=== PATIENT | female | born 1990 | race Caucasian/White ===

== ENCOUNTER 2024-03-24 11:20 | Outpatient (CLI) | payer OTHER, SELFPAY | END 2024-03-24 11:21 | disposition home or self-care (01) | PROVIDERS: PCP Advanced Practice Midwife; Visit Provider Advanced Practice Midwife | DX: Z34.91 Encounter for supervision of normal pregnancy, unspecified, first trimester (principal); Z3A.08 8 weeks gestation of pregnancy | CPT/HCPCS: 76817; 86592; 86703; 86704; 86706; 86762; 86787; 86803; 86850; 86900; 86901; 87086; 87340 ==

== ENCOUNTER 2024-04-10 15:40 | Outpatient (CLI) | payer OTHER, SELFPAY | END 2024-04-10 15:41 | disposition home or self-care (01) | LOC: NFLDREF 04-14 11:34 | PROVIDERS: PCP Advanced Practice Midwife; Referring Provider Advanced Practice Midwife; Visit Provider Advanced Practice Midwife | DX: Z34.81 Encounter for supervision of other normal pregnancy, first trimester (principal); F12.91 Cannabis use, unspecified, in remission | CPT/HCPCS: 80306 ==

== ENCOUNTER 2024-08-07 08:07 | Outpatient (CLI) | payer OTHER, SELFPAY | END 2024-08-07 08:08 | disposition home or self-care (01) | LOC: NFLDREF 08-09 04:02 | PROVIDERS: Visit Provider Advanced Practice Midwife | DX: Z34.93 Encounter for supervision of normal pregnancy, unspecified, third trimester (principal); Z3A.28 28 weeks gestation of pregnancy | CPT/HCPCS: 86592 ==

== ENCOUNTER 2024-08-07 08:09 | Outpatient (CLI) | payer OTHER, SELFPAY | END 2024-08-07 08:10 | disposition home or self-care (01) | LOC: US 08:10 | PROVIDERS: Visit Provider Advanced Practice Midwife | DX: O09.293 Supervision of pregnancy with other poor reproductive or obstetric history, third trimester (principal); O36.63X0 Maternal care for excessive fetal growth, third trimester, not applicable or unspecified; Z3A.31 31 weeks gestation of pregnancy | CPT/HCPCS: 76816 ==

== ENCOUNTER 2024-09-17 13:50 | Outpatient (CLI) | payer OTHER, SELFPAY ==
[2024-09-17 14:00] VITALS: RESP 16; TEMP 36.8
[2024-09-17 14:08] VITALS: PULSE 88; O2SAT 96
[2024-09-17 14:09] VITALS: BP 127/73; PULSE 88
[2024-09-17 15:04] LABS: Appearance Urine Clear (Clear); Bilirubin Urine Negative (Negative); Blood Urine Trace-intact (Negative); Color Urine Yellow (Yellow); Glucose Urine Negative (Negative); Ketones Urine Trace (Negative); Leukocyte Esterase Urine Negative (Negative); Nitrite Urine Negative (Negative); Protein Urine Negative (Negative); Specific Gravity Urine 1.015 (1.000-1.030); Urobilinogen Urine 0.2 (0.2-1.0)
[2024-09-17] MEDS: LACTATED RINGERS 1000 ML 1,000 ML 500 ML IV (15:18)
[2024-09-17 15:21] LABS: Amorphous Sediment Urine Moderate; Bacteria Urine Few; RBC Urine 0-2 (0-2); Squamous Epithelial Cell Urine Few (None-Few); WBC Urine 0-2 (0-5)
--- NOTE | 2024-09-17 15:45 | CRLHL7_ITS ---
For Patients: As a result of the Century Cures Act, medical imaging exams and procedure reports are released immediately into your electronic medical record. You may view this report before your referring provider. If you have questions, please contact your health care provider. INDICATION: Unsure of baseline heart rate. TECHNIQUE: Ultrasound OB pelvis transabdominal. Real-time cardoso-scale imaging of the fetus was performed without stress testing. COMPARISON: 08/07/2024. FINDINGS: Sonographic imaging demonstrates a single living intrauterine gestation. Fetus demonstrates a regular cardiac rate of 133 beats per minute. Fetus has a cephalic orientation. Posterior placenta location. Amniotic fluid volume single deepest pocket 8.2 cm 2/2. motion 2/2. tone 2/2. breathing movements 0/2. IMPRESSION: Single intrauterine with a heart rate of 133 beats per minute and biophysical profile 11/09. No breathing visualized. Dictated by Andi Noel MD @ 09/17/2024 6:05:10 PM (Electronically Signed)
[2024-09-17 18:31] VITALS: BP 114/72; PULSE 76; RESP 16; TEMP 36.8
--- NOTE | 2024-09-17 18:48 | PM.OBLDTN ---
OB - Triage/Final Diagnosis Visit Information Date Seen: 09/17/24 Date of evaluation: 09/17/24 Narrative: Hiwot is a 34 year old 2 para 1 at 34.0 weeks gestation by LMP, who presents with increased pelvic pressure and contractions. She reports feeling more uncomfortable starting yesterday with pelvic pressure which reminded her of her last labor pains. This worsened around noon today and she reported she felt like she did when in labor with her last . She denies leaking of fluid or bleeding. On admission to triage she was akhil frequently. Cervical exam was fingertip and posterior. She was given 1000ml IV fluids total during her stay. FHR indeterminate due to wandering baseline, fetus was very active could be heard moving with the US, pt reported frequent movement as well. Decision was made to get BPP, which was 6/8, one off for breathing. GREGG 22 per tech. EFM placed after exam and then was Category I with FHR 130, + accelerations, no decelerations. Contractions continued on monitor but patient not aware of them. Does report some pelvic pressure when up walking to the bathroom. UA had trace blood and moderate sediment, pt denies UTI symptoms. Decision to wait for urine culture before considering treatment. Repeat exam approximately 4 hours after initial check was unchanged. Assessment Dehydration vs kidney stone/sediment vs UTI Threatened labor Plan Discharge home with PTL precautions Return for increasing pelvic pressure or contractions Report any UTI symptoms if occurs Reviewed s/s kidney stone, return for severe pain Oral hydration at home Routine visit as scheduled Reason for evaluation: threatened labor Evaluation Cervical dilation (cm): 0 Cervical effacement (%): 0 Laboratory results: Laboratory Tests 09/17/24 Range/Units 14:35 Urine Color Yellow (Yellow) Urine Appearance Clear (Clear) Urine pH 7.0 (5.0-8.5) Ur Specific [place] 1.015 (1.000-1.030) Urine Protein Negative (Negative) Urine Glucose (UA) Negative (Negative) Urine Ketones Trace A (Negative) Urine Blood Trace-intact A (Negative) Urine Nitrite Negative (Negative) Urine Bilirubin Negative (Negative) Urine Urobilinogen 0.2 (0.2-1.0) Ur Leukocyte Esterase Negative (Negative) Urine RBC 0-2 (0-2) Urine WBC 0-2 (0-5) Ur Squamous Epith Cells Few (None-Few) Amorphous Sediment Moderate A (None) Urine Bacteria Few A (None) Vital signs: Vital Signs - 24 hr 09/17/24 14:00 09/17/24 14:08 09/17/24 14:09 Temperature 98.3 F Pulse Rate 88 Respiratory Rate 16 Blood Pressure 127/73 Pulse Oximetry 96 09/17/24 18:31 Temperature Pulse Rate 76 Respiratory Rate Blood Pressure 114/72 Pulse Oximetry Final Diagnosis (1) Threatened labor: Status: Acute
--- NOTE | 2024-09-17 18:58 | PC.OBNST ---
NST Note NST Note Start: 09/17/24 14:25 Freq: ONCE Status: Active Protocol: Document 09/17/24 18:56 BRM (Rec: 09/17/24 18:58 BRM Desktop) NST Note 2 Para (# of births) 1 EDC 10/29/24 Gestational Age In Weeks & Days 34 Weeks & 0 Days Patient Presented with Complaint(s) of Contractions/cramping Reactive Yes Appropriate for Gestational Age Yes RN Marni Hernandez Date 09/17/24 Reactive Yes Appropriate for Gestational Age Yes KARUNA Campbell CNM Date 09/17/24 OB NST charge Yes Complete NST Note via Write Note Yes The provider's electronic signature indicates the NST is reactive/appropriate for gestational age. *Note to provider: If an addendum is required, open the patient's chart and click on the note under the Nurse/Allied Health tab.
== END 2024-09-17 18:44 | disposition home or self-care (01) ==
LOC: OB OUT 13:51 → OB 13:53
PROVIDERS: Visit Provider Advanced Practice Midwife
DX: O47.03 False labor before 37 completed weeks of gestation, third trimester (principal); Z3A.34 34 weeks gestation of pregnancy
CPT/HCPCS: 59025; 76815; 76819; 81001; 81003; 87086; G0463; J7120

== ENCOUNTER 2024-10-01 08:37 | Outpatient (CLI) | payer OTHER, SELFPAY | END 2024-10-01 08:38 | disposition home or self-care (01) | LOC: NFLDREF 10-03 23:37 | PROVIDERS: Visit Provider Advanced Practice Midwife | DX: Z34.83 Encounter for supervision of other normal pregnancy, third trimester (principal) | CPT/HCPCS: 87081; 87653 ==

== ENCOUNTER 2024-10-18 22:26 | Inpatient (IN) | payer OTHER, SELFPAY ==
--- NOTE | 2024-10-18 22:45 | W.PM.LDBA ---
Subjective History of Present Illness Date Seen: 10/18/24 Narrative: Patient is being admitted to Labor and Delivery for SROM is grossly ruptured on admission. She is a 34 year old at 38.3 weeks gestation. Her full history and physical was dictated by TRELL Diallo on 10/08/24. Please see this for details. Specific Issues/Plans Partner: Dale? NIPT low risk, girl H&P:? Yung Campbell CNM on 10/08/24? # Family hx of BP issues in (mother and grandmother) recommended baby ASA at 12 weeks, is taking Risks: has BMI>30 and age >35? #? AMA 35-39 genetic screening- planning NIPT recommend level II 20 wk US?-order placed for [place] #? Possible sleep apnea having home sleep study soon did not qualify for CPAP had 2 events and hour per pt report ?#THC use last 6 months ago UDS ordered negative at 11wks #Large for dates fetus, EFW >99%ile Hx of Macrosomia with 1st baby 9lb 13oz [facility] recommended growth at 28 weeks: >97% Imaging:? 1st tri: 03/27/24-Single living intrauterine with sonographic gestational age 9 weeks 1 day and sonographic due date 10/26/2024. Inferior subchorionic hemorrhage measures 1.9 x 1.3 x 0.9 cm. Anatomy US: Level II with [facility]. SIUP. No anomalies identified. Growth and estimated weight is large for gestational age pattern of growth, EFW 99%ile. Amniotic fluid appears normal. Recommend repeat growth due to EFW >90%ile to be completed in [place]. Repeat growth US completed 08/07/24: IMPRESSION: 1. Sonographic gestational age 31 weeks 2 days and sonographic due date 10/07/2024. Sonographic age is 22 days ahead of the clinical age. 2. Estimated weight greater than 97th percentile. BPD, HC and AC all greater than 97th percentile. Repeat US not recommended. Vaccinations:?? COVID:?vaccinated, 4 boosters, 03/24/24 Flu: 03/24/24? Tdap: 08/28/23? RSV: No longer being offered? 32 week mental health: 08/27/24? Last pap:? [Only high-risk abnormal pap results in problem list]? GBS: 10/01/24 OB - Problem Based A/P Additional Plan (1) SROM (spontaneous rupture of membranes): Status: Acute (2) with 38 completed weeks gestation: Status: Acute (3) AMA (advanced maternal age) multigravida 35+: Status: Acute (4) Hx of macrosomia in infant in prior , currently : Status: Acute Plan Assessment:?? at 38.3 weeks gestation?? GBS negative? Patient is coping well with challenges of labor.?? Labor type: Spontaneous, Early labor? Category 1 FHR pattern.? complicated by: Large for dates fetus, EFW >99%ile AMA 35-39 Plan:?? ?Admit to L & D? IV access: not indicated at this time Monitoring per policy: intermittent? Candidate for analgesia of choice.? Planning unmedicated for pain management Expectant management at this time ? Patient encouraged to reposition and ambulate to promote physiologic labor and . Anticipate ? Delivery/Labor/Induction Plan Plan: expectant management OB Exam Physical Exam Vital signs: VSS, afebrile? General Appearance:? Calm, cooperative.? No acute distress.? Normal affect.? Psychiatric Exam: Alert and oriented, appropriate affect? HEENT: normocephalic, neck supple, full ROM? Respiratory:? Symmetrical chest wall movement.? Normal respiratory effort.? Clear to auscultation? Cardiac:? regular rate and rhythm? Abdomen: Gravid, non tender? Extremities:? normal and trace edema? Skin: warm, dry.??? Ctx:? Q 5 min apart.? ? Moderate? ? FHTs:? Baseline: 150.? Variability: moderate.?? Accels: +.??? Decels:? -.? SVE: Deferred at this time? Membranes: ? SROM,? clear fluid? Detailed Labor and Delivery Exam Patient Gravid: Yes
[2024-10-18 22:55] VITALS: BMI 36.9
[2024-10-18 23:34] VITALS: RESP 16; TEMP 36.5
[2024-10-19] VITALS (152 sets, daily range): BP systolic 81–151; BP diastolic 42–91; PULSE 55–199; RESP 16–18; TEMP 36.4–37.2; O2SAT 81–100
[2024-10-19] MEDS: ONDANSETRON ODT 4 MG TAB PO (00:33)
--- NOTE | 2024-10-19 02:11 | PM.OBPNL ---
Subjective Date Seen: 10/19/24 Narrative: ?Hiwot is coping well with labor pain/contractions. ?Dale is with her for support. ?She is using Nitrous for comfort and pain management and has requested an epidural. She was checked by RN per her request and was /-2.? Objective Exam: VSS, afebrile General Appearance:? Calm, cooperative. ?No acute distress. ? Psychiatric Exam: Alert and oriented, appropriate affect Abdomen: Gravid Ctx: ?Q 3-5 min apart. ? ?Moderate ? FHTs: ?audible increases heard before during and after contraction with intermittent monitoring, no decelerations heard, FHR 140 SVE: /-2 per RN Membranes: ?SROM clear Vital Signs: Last Vital Signs Temp 98.3 F 10/19/24 00:35 Resp 16 10/19/24 00:35 Comments: BP 130/83, P 88 Plan Plan: Assessment:?? at 38.4 weeks gestation?? GBS negative Patient is coping well with challenges of labor.?? Labor type: Spontaneous, Early labor?? complicated by: Large for dates fetus, EFW >99%ile AMA 35-39 Labor complicated by: nothing at this time? Plan:?? Epidural placement per anesthesia Continue with routine intrapartum cares as ordered.?? Patient encouraged to move and change positions to promote physiologic labor and .?? Anticipate progress to NVD. ?
[2024-10-19] MEDS: LACTATED RINGERS 1000 ML 1,000 ML 1100 ML IV ×2 (02:29→03:10)
[2024-10-19 02:35] LABS: Basophils Percent Auto 0.3 % (0.0-3.0); Eosinophils Percent Auto 0.4 % (0.0-7.0); Hematocrit 36.4 % (33.0-51.0); Immature Granulocytes Pct Auto 0.4 %; Lymphocytes Percent Auto 16.1 % (20-44); Mean Corpuscular HGB Conc 33 gm/dL (32-36); Mean Corpuscular Hemoglobin 28 pg (26-34); Mean Corpuscular Volume 85 fL (80-100); Monocytes Percent Auto 5.2 % (0.0-11.0); Neutrophils Percent Auto 77.6 % (42.0-72.0); Platelet Count* 195 K/uL (140-440); RDW Coefficient of Variation % 13.7 % (11.5-15.5); Red Blood Count 4.31 m/uL (4.00-5.20); White Blood Count* 11.57 K/uL (4.50-11.00)
[2024-10-19 02:36] LABS: Slide Review Reflex No
[2024-10-19] MEDS: ROPIVACAINE 0.2% 100 ml 100 ML 12 MG EPIDURAL ×2 (03:28→11:05)
[2024-10-19] MEDS: fentaNYL 250 MCG/5 ML inj 100 MCG EPIDURAL (03:28)
[2024-10-19] MEDS: LIDOCAINE 2% (PF) 5 ML VIAL EPIDURAL (03:28)
--- NOTE | 2024-10-19 03:39 | PM.ANBPRC ---
[facility] Medical History Vaginal delivery ?O80 - Encounter for full-term uncomplicated delivery (ICD-10) Surgical History H/O knee surgery ?Z98.890 - Other specified postprocedural states (ICD-10) Social History Narrative: Education: Bachelors? ? 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 ? Partner: Dale? 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 ? Pets: one dog? ? Abuse: Denies past ? Unable to assess current, partner present? ? Special Diet: Denies? ? Ok with a blood transfusion: yes? ? Culture or oriental orthodox beliefs: denies? RISK FACTORS? ? Exercise Times/wk: 2-3 times a week, weightlifting swimming and walking? ? Depression/Anxiety: anxiety mostly? ? Previous Treatments just started Zoloft 6 months ago ? Therapy has been doing also ERASMO: 3 PHQ 9: 2? ? Seat Belt Use: Routinely ? Smoking: Denies past/present? ? Alcohol/day: Denies while ? ?1-2 times a month, 1-2 drinks when not Caffeine: tea 2 cups a day? ? Drug Use: Denies past/present? ?THC use 6 months ago What is your current living situation?: I presently have a place to live Problems where you live: no known problems In the past 12 months, utilities in danger of being shut off: no In past 12 months, lack of transportation kept you from medical appts, meetings, work, or getting things needed for daily living: no In the past 12 mos, have been you worried that your food would run out before you had money to buy more?: never true In the past 12 mos, the food you bought just didn't last and you didn't have money to buy more?: never true Smoking Status: Never smoker How often does anyone, including family, friends and others, physically hurt you: never How often does anyone, including family, friends and others, insult or talk down to you: never How often does anyone, including family, friends and others, threaten you with harm: never How often does anyone, including family, friends and others, scream or curse at you: never Meds Home Medications and Allergies Home Medications ?Medication ?Instructions ?Recorded ?Confirmed ?Type collagen powder 1 g PO DAILY 03/24/24 10/18/24 History doxylamine succinate 25 mg tablet 25 mg PO QHS PRN 03/24/24 10/18/24 History (Unisom (doxylamine)) magnesium 200 mg tablet 200 mg PO QDAY 03/24/24 10/18/24 History vit 168-iron 27 mg-folic 1 cap PO DAILY 03/24/24 10/18/24 History acid 800 mcg-omega3 235 mg capsule (One-A-Day -1) aspirin 81 mg chewable tablet 81 mg PO QDAY 04/23/24 10/18/24 History docusate sodium 100 mg capsule 100 mg PO BID 06/18/24 10/18/24 History (Colace) breast pump #1 ea 08/07/24 08/07/24 Rx famotidine 10 mg chewable tablet 10 mg PO DAILY 10/15/24 10/18/24 History sertraline 100 mg tablet 100 mg PO DAILY 10/18/24 10/18/24 History Allergies Allergy/AdvReac Type Severity Reaction Status Date / Time No Known Drug Allergies Allergy Verified 10/15/24 08:09 Results Labs Labs: Laboratory Results - last 24 hr 10/19/24 02:20 WBC 11.57 H RBC 4.31 Hgb 12.0 Hct 36.4 MCV 85 MCH 28 MCHC 33 RDW Coeff of Graciela 13.7 Plt Count 195 Neut % (Auto) 77.6 H Lymph % (Auto) 16.1 L [place] % (Auto) 5.2 Eos % (Auto) 0.4 Baso % (Auto) 0.3 Neut # (Auto) 9.00 H Lymph # (Auto) 1.90 [place] # (Auto) 0.60 Eos # (Auto) 0.00 Baso # (Auto) 0.00 Abs Immat Gran (auto) 0.00 Imm/Tot Granulo (auto) 0.4 Vital Signs Vital Signs: Last Vital Signs Temp 98.3 F 10/19/24 00:35 Pulse 100 10/19/24 03:38 Resp 16 10/19/24 00:35 BP 117/54 L 10/19/24 03:38 Pulse Ox 100 10/19/24 03:38 Weight: 118.388 kg Height: 179.07 cm Anesthesia Procedures Epidural Insertion Patient Location: OB Start Time: 02:45 Stop Time: 03:45 Start Date: 10/19/24 Stop Date: 10/19/24 Reason for Block: primary anesthetic Patient Position: sitting Performed By: Jos Meyer Preanesthetic Checklist: IV checked, risks and benefits discussed, surgical consent, monitors and equipment checked, pre-op evaluation, timeout performed and anesthesia consent Prep: chlorhexidine gluconate Monitoring: blood pressure monitoring, environmental monitoring technician, continuous pulse oximetry and heart rate Approach: midline Vertebral Space: lumbar (1-5) Needle Type: Tuohy needle Injection Technique: continuous catheter Needle gauge: 17 Needle Length (cm): 10 cm Needle Insertion Depth (cm): 9 Catheter Gauge: 19 Catheter Type: multi-orifice Catheter at skin depth (cm): 12 Test Dose Result: negative and lidocaine 1.5% with epinephrine 1 to 200,000 Events: other
[2024-10-19] MEDS: ePHEDrine sulfate 5 MG/ML inj 10 MG IVP ×2 (04:34→05:22)
[2024-10-19] MEDS: LACTATED RINGERS 1000 ML 1,000 ML 425 ML IV (05:51)
--- NOTE | 2024-10-19 06:20 | PM.OBPNL ---
Subjective Date Seen: 10/19/24 Narrative: ?Hiwot is coping well with labor pain/contractions. ?Dale is with her for support. ?She is using an epidural for comfort and pain management.?She has been having some low blood pressure readings since her epidural was placed and the RN has given ephedrine twice. Lowest was 87/42. Hiwot is asking about adding IV Pitocin for augmentation as she feels her progress has been slow. Her contractions are irregular at times with coupling and tripling seen, some lates seen with the low blood pressures which improve with ephedrine. Reviewed risks and benefits of IV Pitocin but would like to watch EFM strip before starting. FHR becomes tachycardic in certain positions will improve with position change. OB technology applications teacher contacted to be in house due to FHR concerns and no decent of head. Hiwot has been tachycardic since ephedrine given. IV fluid bolus now. Objective Exam: VSS, afebrile General Appearance:? Calm, cooperative. ?No acute distress. ? Psychiatric Exam: Alert and oriented, appropriate affect Abdomen: Gravid Ctx: ?Q 1-5 min apart. ? ?Moderate ? FHTs: ?Baseline: 155. ? ? Variability: moderate. ?Accels: +. ? ?Decels: ?intermittent late decelerations. Cat II SVE: 8/80/-3, very soft and stretchy cervix Membranes: ?SROM, AROM of forebag done with exam Vital Signs: Last Vital Signs Temp 98.4 F 10/19/24 03:51 Pulse 116 H 10/19/24 06:18 Resp 16 10/19/24 00:35 BP 106/56 L 10/19/24 06:18 Pulse Ox 98 10/19/24 06:18 Plan Plan: Assessment:?? at 38.4 weeks gestation?? GBS negative Patient is coping well with challenges of labor.?? Labor type: Spontaneous, Early labor? Category 2 FHR pattern.? complicated by: AMA age >35, suspected LGA EFW 99% Labor complicated by: slow progression since SROM? Plan:?? IV fluid bolus now Continue to reposition patient in bed to promote optimal positioning, FHR changes have been responsive to position changes, move as needed Consider discussing low blood pressures with anesthesia team for options to treat if they continue to be low readings Continue with routine intrapartum cares as ordered.?? Patient encouraged to move and change positions to promote physiologic labor and .?? Anticipate progress to NVD. ?
[2024-10-19] MEDS: OXYTOCIN 30 unit/500 ML in NS 30 UNIT/500 ML BAG IVPB (08:55)
--- NOTE | 2024-10-19 09:32 | PM.OBPNL ---
Subjective Date Seen: 10/19/24 Narrative: ?Hiwot is coping well with labor pain/contractions. ?Dale is with her for support. ?She is using an epidural for comfort and pain management.?She has started on IV Pitocin for augmentation after IUPC and FSE were placed. Objective Exam: VSS, afebrile General Appearance:? Calm, cooperative. ?No acute distress. ? Psychiatric Exam: Alert and oriented, appropriate affect Abdomen: Gravid Ctx: ?Q 2-5 min apart. ? ? ?IUPC in place Ctx range from 50-90mmHg FHTs: ?Baseline: 150. ? ? Variability: moderate. ?Accels: +. ? ?Decels: early?. SVE: /-2 Membranes: ?SROM Vital Signs: Last Vital Signs Temp 98.8 F 10/19/24 09:24 Pulse 88 10/19/24 09:17 Resp 17 10/19/24 06:32 BP 111/62 10/19/24 09:17 Pulse Ox 96 10/19/24 09:31 Plan Plan: Assessment:?? at 38.4 weeks gestation?? GBS neg Patient is coping well with challenges of labor.?? Labor type: Augmented, Active labor? Category 2 FHR pattern.? complicated by: AMA age >35, suspected LGA EFW 99% Labor complicated by: ineffective labor pattern Plan:?? IUPC and FSE placed IV Pitocin per protocol Continue with routine intrapartum cares as ordered.?? Patient encouraged to move and change positions to promote physiologic labor and .?? Anticipate progress to NVD. ?
[2024-10-19] MEDS: LACTATED RINGERS 1000 ML 1,000 ML 125 ML IV (11:00)
--- NOTE | 2024-10-19 11:00 | PM.OBPNL ---
Subjective Date Seen: 10/19/24 Narrative: Hiwot reported more pelvic and rectal pressure with contractions. She recently had her IV replaced as the other one was in the antecubital space and uncomfortable. Cervical exam found her to have a rim anteriorly and on the right. With contraction head moves from -2 station to 0 station. Encouraged side lying release for help with decent. Objective Exam: VSS, afebrile General Appearance:? Calm, cooperative. ?No acute distress. ? Psychiatric Exam: Alert and oriented, appropriate affect Abdomen: Gravid Ctx: ?Q 2-4 min apart. ? ? ?Strong IUPC 50-100mmHg FHTs: ?Baseline: 155. ? ? Variability: moderate. ?Accels: +. ? ?Decels: ?-. SVE: Rim 100%, -2 Membranes: ?SROM clear Vital Signs: Last Vital Signs Temp 99.0 F 10/19/24 10:03 Pulse 113 H 10/19/24 10:47 Resp 17 10/19/24 06:32 BP 83/48 L 10/19/24 10:47 Pulse Ox 98 10/19/24 10:56 Contractions Pitocin Rate (mU/min): 6 Plan Plan: Assessment:?? at 38.4 weeks gestation?? GBS neg Patient is coping well with challenges of labor.?? Labor type: Augmented, Active labor? Category 1 FHR pattern.? complicated by: AMA age >35, suspected LGA EFW 99% Labor complicated by: dysfunctional labor pattern requiring IV Pitocin augmentation Plan:?? Side lying release Continue with IV Pitocin per protocol Continue with routine intrapartum cares as ordered.?? Patient encouraged to move and change positions to promote physiologic labor and .?? Anticipate progress to NVD. ?
[2024-10-19] MEDS: ONDANSETRON 2 MG/ML inj 4 MG IV (13:09)
[2024-10-19] MEDS: LIDOCAINE 1 % PF 30 ML INJECTION (14:06)
[2024-10-19] MEDS: miSOPROStoL 800 MCG/4 TABLET PR (14:11)
--- NOTE | 2024-10-19 14:39 | P.PCN_ITS ---
Procedure Note Time Seen by Provider: 14:40 Date Seen: 10/19/24 Date of procedure: 11/05/24 Will [facility] bill your pro fee for this procedure?: Yes Pre-op diagnosis: 34yo now 2 s/p at 13:34 today. Periclitoral laceration Procedure: 34-year-old 2 para 1 now 2 at 38 weeks 4 days gestation who delivered via normal spontaneous vaginal delivery at 1:34 p.m. today. I was asked to see the patient because she had both a second-degree perineal laceration and a laceration between her clitoris and urethra. Brain Campbell CNM asked me for a consultation to repair the periclitoral/periurethral laceration. The edges of the laceration were injected with 1% lidocaine without epinephrine. The patient had epidural but this area of her body was extremely sensitive and not covered by the epidural. 8 mL was used. The laceration was repaired with 3-0 Vicryl in a running locked manner. The patient tolerated this procedure well. Minimal blood loss. QBL for the delivery plus laceration repair: 210 mL
--- NOTE | 2024-10-19 14:39 | W.PM.OBVAGDE ---
OB Procedure Vag Delivery Mother Details Mother Details: The patient is a 34 year-old, 2, Para 1, admitted on 10/18/24 at 38.3 weeks gestation with SROM. : 2 Para: 2 Weeks Gestation: 38.4 Admission Date: 10/18/24 Additional Details Amniotic Membrane Status: SROM Amniotic Membrane Rupture Date: 10/18/24 Amniotic Membrane Rupture Time: 20:30 Amniotic Membrane Fluid Description: Clear Analgesia/Anesthesia Type: Epidural and Nitrous Oxide Waterbirth: No Pitcoin: Yes Intrapartal Events: Labor Augmentation Delivery augmentation: rupture of membranes (Forebag) Labor Onset: 06:40 Complete: 12:04 Pushin:04 Heart: heart tones during second stage were continuously monitored Cat. II FHR 155 with prolonged accelerations up to 180-190's, responsive to position changes. Delivery Details Delivery Date: 10/19/24 Delivery Time: 13:34 Route of delivery: Infant Gender: Female Infant Viability: Alive; Heart Rate Present Position at Delivery: OA Delivery Details: 34?y.o?at 38.4 weeks.? Hiwot arrived to the unit with SROM on 10/18/24 at 2030 with clear fluid. ?She made slow change overnight to 8cm then with exam found to have bulging forebag. This was ruptured after discussing with patient but did not accelerate labor. She requested an epidural for pain and contractions continued to be dysfunctional with couplets and periods of spaced contractions. Decision made to augment with IV Pitocin with shared decision making. She then progressed to complete. ? She became complete at 1204.??She pushed in multiple positions effectively, including right side, left side and hands and knees. ? Spontaneous vaginal delivery at 1334 of?a viable? female infant.??Delivered in vertex OA position.??Shoulders delivered easily.? Spontaneous cry noted.?? placed on maternal abdomen.??Cord?was clamped and cut after a 15+ minute delay.??Nose and mouth were bulb suctioned.? Shoulder dystocia: no? Nuchal cord: no? Meconium stained?fluid: no? Water : no? ? ? 8 at 1 minute and 9 at 5 minutes.? Weight is 10lbs 15oz. ? Placenta delivered spontaneously and?complete?at 1400 with a?3 vessel?cord.?? Bleeding controlled with fundal massage and?pitocin?for AMTSL.?She had continuous trickling so also received Cytotec 800mcg rectally. ? Lacerations:? 2nddegree perineal , repaired with 3-0?vicryl.??There was a anterior periurethral tear between urethra and clitoris that was repaired by Dr. Anderson, see her note for details. ? ? Bleeding?post delivery?was: minimal. ?The fundus was firm to palpation.? Blood loss: 210?mL.? Blood loss measurement type: QBL? ? ? Sponge,?lap?and needles counts are correct.? Mother and infant were stable after delivery.? 1 Minute Interval Total Score: 8 5 Minute Interval Total Score: 9 Additional Details Shoulder Dystocia: No Placenta Delivery Time: 14:00 Placental Delivery Description: Spontaneous Delivery repair: Vicryl Procedure Done: Global Blood Loss: 210 Laceration: Perineal - 2nd Degree Blood Loss Measurement Type: QBL Bakri Used: No Sponge/Need Count Correct: Yes Cord Vessel Description: 3 Vessels Event Summary Status: Mother and infant were stable after delivery. Disposition: floor
[2024-10-19] MEDS: ACETAMINOPHEN 500 MG TABLET 1000 MG PO ×2 (14:43→21:07)
[2024-10-19 17:23] LABS: Hematocrit 35.4 % (33.0-51.0); Hemoglobin* 11.4 gm/dL (12.0-16.0); Mean Corpuscular HGB Conc 32 gm/dL (32-36); Mean Corpuscular Hemoglobin 28 pg (26-34); Mean Corpuscular Volume 86 fL (80-100); Platelet Count* 196 K/uL (140-440); Red Blood Count 4.12 m/uL (4.00-5.20); White Blood Count* 19.73 K/uL (4.50-11.00)
[2024-10-19 17:24] LABS: Slide Review Reflex No
[2024-10-19 17:41] LABS: Alanine Aminotransferase* 32 U/L (4-35); Aspartate Amino Transferase* 43 U/L (12-35); Blood Urea Nitrogen* 10 mg/dL (5-24); Creatinine* 0.8 mg/dL (0.5-1.5); Est. Creatinine Clearance* 105.13; Estimated Glomerular Filt Rate 98 ml/min
[2024-10-19] MEDS: IBUPROFEN 600 MG TABLET PO ×2 (17:45→23:49)
[2024-10-20 00:45] VITALS: BP 113/74; PULSE 60; RESP 18; TEMP 37.1
[2024-10-20] MEDS: ACETAMINOPHEN 500 MG TABLET 1000 MG PO ×3 (03:11→18:01)
[2024-10-20 03:46] VITALS: BP 115/78; PULSE 43; RESP 18; TEMP 36.6
--- NOTE | 2024-10-20 07:31 | P.OBPN_ITS ---
OB - PN:Subj Subjective Date Seen: 10/20/24 Patient comments OB post-: no complaints, pain well controlled, tolerating diet and flatus present [place] status: (supplementing with SNS feedings ) feeding status: breast and bottle feeding Narrative: Hiwot feels well.?She was considering discharge today but will plan to stay as baby is likely going to due to blood sugar regulation issues. Her pain is well controlled with current medications.? She has no new complaints.? Urinary output is adequate and she is voiding without difficulty.? Has a good appetite, is tolerating a general diet, is passing flatus, and has not had a bowel movement.? Has scant amount of rubra lochia.? She is ambulating well.?She is with SNS supplementation with assistance from her partner. OB - PN: Obj Exam Physical Exam: Vital signs: Temp Pulse Resp BP Pulse Ox 97.9 F 43 L 18 115/78 96 10/20/24 03:46 10/20/24 03:46 10/20/24 03:46 10/20/24 03:46 10/19/24 21:13 Narrative: GENERAL APPEARANCE:? normal affect, alert, no distress? MOOD:? appropriate? CHEST:? clear to auscultation and percussion? HEART:? regular rate and rhythm? ABDOMEN:? soft, non-tender the uterine fundus is U/2 and is appropriate for the stage of recovery.? PERINEUM:? mild edema of the perineum, there is a 2nd degree and periurethral that is healing well.? EXTREMITIES:? normal and no edema? OB - PN: Obj Data Labs Labs: Laboratory Results - last 24 hr 10/19/24 17:18 WBC 19.73 H RBC 4.12 Hgb 11.4 L Hct 35.4 MCV 86 MCH 28 MCHC 32 Plt Count 196 BUN 10 Creatinine 0.8 Estimated Creat Clear 105.13 Estimated GFR 98 AST 43 H ALT 32 OB - PN: A/P Delivery Assessment and Plan (1) AMA (advanced maternal age) multigravida 35+: Status: Acute (2) Hx of macrosomia in in prior , currently : Status: Inactive (3) Gestational hypertension: Status: Acute (4) Anxiety: Status: Acute (5) care following vaginal delivery: Status: Acute Plan day: 1 Plan: routine care
[2024-10-20] MEDS: IBUPROFEN 600 MG TABLET PO ×3 (08:10→21:09)
[2024-10-20 08:11] VITALS: BP 107/72; PULSE 68; RESP 18; TEMP 36.5; O2SAT 96
[2024-10-20 12:46] VITALS: BP 116/75; PULSE 74; RESP 18; TEMP 36.4; O2SAT 97
--- NOTE | 2024-10-20 15:37 | PM.ANPOST ---
Post Anesthesia Note Post Anesthesia Note Patient seen: Inpatient Respiratory Status: adequate Cardiovascular Status: adequate Mental Status: baseline Pain: adequate Temp: baseline Anesthetic awareness: N/A Complications: none Follow care: none
[2024-10-20 21:00] VITALS: BP 117/76; PULSE 59; RESP 16; TEMP 36.6; O2SAT 96
[2024-10-21 00:10] VITALS: BP 121/78; PULSE 56; RESP 20; O2SAT 96
[2024-10-21] MEDS: ACETAMINOPHEN 500 MG TABLET 1000 MG PO ×2 (00:13→09:01)
[2024-10-21 05:00] VITALS: BP 119/78; PULSE 54; RESP 16; TEMP 36.6; O2SAT 97
--- NOTE | 2024-10-21 07:15 | P.DS_ITS ---
DS: Providers Provider Date Seen: 10/21/24 Date of admission: 10/18/24 22:26 Primary care physician: Not a Local Provider Admitting Clinician: Brain Campbell CNM Attending Physician on discharge: Cortney CAI Date of Discharge: 10/21/24 DS: Diagnosis Discharge Diagnosis (1) care following vaginal delivery: Status: Acute (2) Gestational hypertension: Status: Acute Exam Narrative: Exam Narrative: GENERAL APPEARANCE:? normal affect, alert, no distress MOOD:? appropriate CHEST:? clear to auscultation HEART:? regular rate and rhythm ABDOMEN:? soft, non-tender the uterine fundus is At Umbilicus, Midline and is appropriate for the stage of recovery. PERINEUM:? mild edema of the perineum, there is a Perineal Laceration and periurethral laceration that are both well approximated and with minimal edema, no erythema EXTREMITIES:? normal and minimal edema Const: Vital Signs, click to edit/add: Vital Signs - 24 hr 10/20/24 08:11 10/20/24 12:46 10/20/24 21:00 Temperature 97.7 F 97.6 F 97.8 F Pulse Rate [Blood Pressure Cuff] 68 74 59 L Respiratory Rate 18 18 16 Blood Pressure [Le ft Arm] 107/72 116/75 117/76 Pulse Oximetry 96 97 96 Oxygen Delivery Me thod Room Air Room Air Room Air 10/21/24 00:10 10/21/24 05:00 Temperature 97.8 F Pulse Rate [Blood Pressure Cuff] 56 L 54 L Respiratory Rate 20 16 Blood Pressure [Le ft Arm] 121/78 119/78 Pulse Oximetry 96 97 Oxygen Delivery Me thod Room Air Room Air OB - DS: Summary Hospital Course Hospital Course: Hiwot is a 34 y.o. G 2 P 2003 who was admitted to [facility] for SROM and augmented with pitocin and rupture of a forebag. She was diagnosed with GHTN intrapartum. Pre-e labs were normal except a mild elevation of AST at 43. Protein/Creatinine ratio was not checked since she was ruptured. She has been normotensive since after 1517?on 10/19. She had a NVD that was uncomplicated. She had a second degree perineal laceration and Dr. Anderson repaired a periurethral laceration that extended to the clitoris. The patient feels well.? The pain is well controlled with current medications.? She has no new complaints.? She is breast feeding and reports things are going well. She is supplementing donor breast milk. Pumping recommended. the patient has done well.? Vitals have been stable.? She has remained afebrile.? Has a good appetite, is tolerating a general diet.? She is voiding without difficulty.? She is passing gas and has not had a bowel movement.? She is ambulating and denies any dizziness.? Has small amount of rubra lochia. She is planning condoms/NFP/Vas for prevention.? ?? Problems: none. Normotensive since a couple of hours after . ?? plan:? Discharge home with baby.? Follow up in 3-5 days, 2 weeks and 6 weeks.? , may see if needed? Hgb 11.4 on admit. ? GHTN diagnosed by elevated BP greater than 4 hours apart? Labs stable Discharge home with BP cuff if does not already have one. To check BP twice daily. Follow up in 3-5 days? Call for signs/symptoms of preeclampsia? ? Peripartum Data Infant delivery method: Vaginal Laceration description: Perineal - 2nd Degree (and a periurethral laceration repair) Episiotomy description: None complications: none Gender: Female Discharge Plan: Home Status at Discharge Overall status at discharge: patient is progressing back to baseline Time Spent with Patient Time attestation: Total time spent providing and/or coordinating discharge services: Time spent: Less than 30 minutes Discharge Plan Discharge Disposition: Home, Self-Care Date of Admission: 10/18/24 22:26 Attending Provider on Discharge: Clare Alvarez Primary Care Provider: Provider,Not a Local Condition: Stable Anticipated Discharge Date/Time: 10/21/24 12:00 Discharge Medications: Continued One-A-Day -1 27 mg iron- 800 mcg-235 mg capsule 1 cap PO DAILY collagen powder 1 g PO DAILY magnesium 200 mg tablet 200 mg PO QDAY docusate sodium [Colace] 100 mg capsule 100 mg PO BID (DME) breast pump Device See Rx Instructions .ROUTE .MEDSUPPLY Qty: 1 0RF Rx Instructions: As directed sertraline 100 mg tablet 100 mg PO DAILY Discontinued Unisom (doxylamine) 25 mg tablet 25 mg PO QHS PRN aspirin 81 mg tablet,chewable 81 mg PO QDAY famotidine 10 mg tablet,chewable 10 mg PO DAILY Discharge Orders: Discharge Order (Routine); Ordered 10/21/24 Ordered By: Clare Alvarez Patient Education: OB Over the Counter Medication Information, OB Vaginal/Breast Feeding Additional Instructions: Discharge instructions were reviewed with the patient including signs and symptoms of infection and home going medications Nothing vaginally for 6 weeks: no tampons or intercourse Do not drive while taking narcotic pain medication(s) Off Work or School for 6 weeks Symptoms to report to doctor: * Bleeding that saturates more than one pad per hour * Passing clots larger than the size of a golf ball * Pain not relieved by prescribed medication * Fever above 100.4 degrees Fahrenheit * A foul vaginal odor * Difficulty in emotions, mood, and functions * Thoughts of hurting yourself and/or * Painful, reddened area in your breast * Any drainage, redness, or tenderness in your IV/epidural site * Severe headache that doesn't improve after taking medications * Changes in vision, including temporary loss of vision, blurred vision, and/or light sensitivity * Upper abdominal pain (usually under ribs on the right side) * Decrease in urination or painful, frequent urinating * Chest pain * Shortness of breath * Tenderness or pain with redness and/swelling in the calf(s) of your leg [facility] for a BP check?10/24/24 Call with BP greater than or equal to 160/110 2-week visit: discuss infant feeding concerns, review control options and screen for anxiety/depression. 6-week visit for an annual exam. consultation services are available to all mothers and babies for the first year after delivery.? To make an appointment, please call [phone]. Activity Level: Activity as Tolerated and No strenuous activity Discharge Diet: Regular Follow Up App[facility]ments: [facility] [Provider Group] Forms: MyHealth Info Instructions
[2024-10-21 09:02] VITALS: BP 134/80; PULSE 71; RESP 16; TEMP 36.8; O2SAT 97
[2024-10-21 09:09] VITALS: BP 120/75
== END 2024-10-21 10:40 | disposition home or self-care (01) | DRG 807 ==
LOC: OB OUT 22:26 → OB 22:26
PROVIDERS: Admitting Provider Advanced Practice Midwife; Visit Provider Advanced Practice Midwife
DX: O42.02 Full-term premature rupture of membranes, onset of labor within 24 hours of rupture (principal); Z37.0 Single live birth; Z3A.38 38 weeks gestation of pregnancy; O76 Abnormality in fetal heart rate and rhythm complicating labor and delivery; O99.344 Other mental disorders complicating childbirth; F41.9 Anxiety disorder, unspecified; O09.523 Supervision of elderly multigravida, third trimester; Z87.42 Personal history of other diseases of the female genital tract; O13.4 Gestational [pregnancy-induced] hypertension without significant proteinuria, complicating childbirth
CPT/HCPCS: 01967; 36415; 82565; 84450; 84460; 84520; 85025; 85027; 86592; 86850; 86900; 86901; 94761; A9270; J2003; J2405; J2795; J3010; J7120